=== PATIENT | male | born 1960 | race Caucasian/White ===

== ENCOUNTER 2023-02-10 13:00 | Emergency (ER) | payer OTHER ==
[2023-02-10] MEDS ORDERED: cefTRIAXone 1 GM Vial IM ONE (14:24)
[2023-02-10] MEDS ORDERED: cefTRIAXone 1 GM Vial ONE (14:32)
[2023-02-10] MEDS: Lidocaine 1% 5 ML VIAL INJECT ONE ×2 (14:39→15:12)
[2023-02-10] MEDS ORDERED: Bacitracin Oint 1 GM U/D Packet TOP ONE (15:28)
== END 2023-02-10 15:37 | disposition home or self-care (01) ==
LOC: LB.ED 13:00
DX: S68.621A Partial traumatic transphalangeal amputation of left index finger, initial encounter (principal); Z79.82 Long term (current) use of aspirin; Z79.899 Other long term (current) drug therapy; W27.0XXA Contact with workbench tool, initial encounter
CPT/HCPCS: 12001; 73140; 96372; 99283; J0696; 99282